=== PATIENT | female | born 1955 | race Caucasian/White ===

== ENCOUNTER 2017-12-17 07:35 | Day surgery (SDC) | payer OTHER ==
[~2017-12-17] VITALS: Ht 152.4 cm; Wt 63.5 kg
[2017-12-17 07:55] VITALS: BP 115/74
[2017-12-17 09:45] VITALS: BP 98/55
== END 2017-12-17 11:05 | disposition home or self-care (01) ==
LOC: GI 07:35 → OR 08:00 → GI 08:30
PROVIDERS: Internal Medicine Gastroenterology
PROC: 0DJD8ZZ Inspection of Lower Intestinal Tract, Via Natural or Artificial Opening Endoscopic (ICD-10-PCS; principal; 2017-12-17 08:30)
DX: Z12.11 Encounter for screening for malignant neoplasm of colon (principal); Z68.24 Body mass index [BMI] 24.0-24.9, adult
CPT/HCPCS: 45378; J1200; J1610; J2250; J2310; J3010; J3490